=== PATIENT | female | born 1990 | race Caucasian/White ===

== ENCOUNTER 2016-07-24 03:24 | Emergency (ER) | payer OTHER ==
[2016-07-24 03:30] VITALS: BP 109/78; PULSE 71; RESP 16; TEMP 97.5; O2SAT 98
[2016-07-24] MEDS ORDERED: TDAP ADULT 0.5 ML INJ (BOOSTRIX) IM ONE (03:45)
[2016-07-24] MEDS ORDERED: SKIN ADHESIVE (DERMABOND) 1 EACH TP ONE (03:45)
--- NOTE | 2016-07-24 04:23 | EDPHY ---
H & P Stated Complaint: L hand lac Time Seen by Provider: 07/24/16 03:44 HPI/ROS: HPI The patient presents with left wrist laceration which occurred just prior to arrival. She was in her bed and went to tape a window which was rattling. Her hand went directly through the window and she cut herself on a piece of glass. She denies any numbness or tingling. She is able to move her wrist she says. She believes her tetanus shot is up-to-date. REVIEW OF SYSTEMS Constitutional: No fever, no chills. Skin: No rashes. Neurological: No headache. PMHx: Healthy Soc Hx: College student, recently relocated to [place] after living in [place] PHYSICAL General Appearance: Alert, no distress Eyes: Pupils equal and round no pallor or injection ENT, Mouth: Mucous membranes moist Respiratory: Breathing comfortably Neurological: A&O, moves all extremities Skin: Warm and dry, no rashes Musculoskeletal: Neck is supple non tender Extremities: Left wrist with 4 cm laceration overlying radial aspect of anterior wrist, no tendon involvement seen, full range of motion of wrist, sensation intact to light touch of hand Psychiatric: Patient is oriented X 3, there is no agitation Source: Patient - Personal History LMP (Females 10-55): Now Current Tetanus/Diphtheria Vaccine: Unsure Current Tetanus Diphtheria and Acellular Pertussis (TDAP): Unsure - Medical/Surgical History Hx Asthma: No Hx Chronic Respiratory Disease: No Hx Diabetes: No Hx Cardiac Disease: No Hx Renal Disease: No Hx Cirrhosis: No Hx Alcoholism: No Hx HIV/AIDS: No Hx Splenectomy or Spleen Trauma: No Other PMH: jaw/joint replacement x2 5 and 2 years ago - Social History Smoking Status: Never smoked Constitutional: Initial Vital Signs Temperature (C) 36.4 C 07/24/16 03:28 Heart Rate 71 07/24/16 03:28 Respiratory Rate 16 07/24/16 03:28 Blood Pressure 109/78 07/24/16 03:28 O2 Sat (%) 98 07/24/16 03:28 O2 Delivery Mode Room Air Allergies/Adverse Reactions: No Known Allergies Allergy (Unverified 05/28/14 16:58) Medical Decision Making - Diagnostics Imaging: X-ray left wrist two view shows no fracture, no dislocation, no foreign body, interpreted by me, radiology interpretation is pending. Procedures: LACERATION REPAIR Procedure: Laceration repair. Verbal consent was obtained from the patient. The linear 4 cm laceration on the left wrist was anesthetized using lidocaine with epinephrine. The wound was scrubbed, draped and explored to its base with a gloved finger. There were no deep structures involved. No tendon injury was identified. . The wound was repaired with 4.0 Prolene. The wound repair was simple/complex. The procedure was performed by myself. Differential Diagnosis: This is a healthy 25-year-old woman who presents after sustaining a laceration to her left wrist, cutting it on a piece of glass from a broken window. Differential diagnosis includes retained foreign body, tendon injury, simple laceration. In the emergency room, the wound was anesthetized, irrigated. X-rays were performed which revealed no foreign body. The wound was repaired with sutures. No deep structure involvement was found. - Data Points Medications Given: Discontinued Medications Diphtheria/Tetanus/Acell Pertussis (Boostrix) 0.5 ml IM .ONCE ONE Stop: 07/24/16 03:46 Last Admin: 07/24/16 04:04 Dose: 0.5 ml Octyl Cyanoacrylate (Dermabond) 1 each TP EDNOW ONE Stop: 07/24/16 03:46 Last Admin: 07/24/16 04:05 Dose: 1 each Departure - Departure Disposition: Home, Routine, Self-Care Clinical Impression: Laceration Condition: Good Instructions: Care For Your Stitches (ED) Additional Instructions: Please return to the emergency room in 7 days to have your stitches taken out. You should return if there is any redness, swelling, drainage from the wound. I have given you the information for the hand specialist if you have ongoing pain. Referrals: Gunjan Singh MD [Medical Doctor] - As per Instructions Stand Alone Forms: School Excuse
== END 2016-07-24 04:35 | disposition home or self-care (01) ==
PROC: 0HQEXZZ Repair Left Lower Arm Skin, External Approach (ICD-10-PCS; principal; 2016-07-24)
DX: S61.512A Laceration without foreign body of left wrist, initial encounter (principal); Z23 Encounter for immunization; W25.XXXA Contact with sharp glass, initial encounter; Y93.89 Activity, other specified
CPT/HCPCS: L3908

== ENCOUNTER 2016-09-09 18:44 | Observation (INO) | payer OTHER ==
[2016-09-09] MEDS ORDERED: MAG HYDROX/AL HYDROX/SIMETH 30 ML UDCUP PO ONE (19:14)
[2016-09-09] MEDS ORDERED: HYOSCYAMINE SULFATE 0.125 MG TAB PO ONE (19:14)
[2016-09-09] MEDS ORDERED: LIDOCAINE 2% VISCOUS 15 ML UDCUP PO ONE (19:14)
--- NOTE | 2016-09-09 19:17 | EDPHY ---
H & P Stated Complaint: 3 days feeling like something is stuck in throat/gags/vomits Time Seen by Provider: 09/09/16 18:56 HPI/ROS: CHIEF COMPLAINT: Dysphagia HISTORY OF PRESENT ILLNESS: The patient presents to the ED with a 3 day history of dysphagia and nausea and intermittent gagging. The patient denies any inability to keep solid or liquid food down. The patient has had a burning substernal discomfort in her esophagus over the past several days. It is worse with positional changes. It is also worsened with any eating. The patient denies significant past medical history such as diabetes or immunosuppression. Patient does have a history of intestinal issues. She reports she underwent endoscopy in 2011 and was on a proton pump inhibitor for a period of time. The patient denies melena or hematemesis. REVIEW OF SYSTEMS: A comprehensive 10 point review of systems is otherwise negative aside from elements mentioned in the history of present illness. Source: Patient Exam Limitations: No limitations - Personal History LMP (Females 10-55): 15-21 Days Ago Current Tetanus/Diphtheria Vaccine: Yes - Medical/Surgical History Hx Asthma: No Hx Chronic Respiratory Disease: No Hx Diabetes: No Hx Cardiac Disease: No Hx Renal Disease: No Hx Cirrhosis: No Hx Alcoholism: No Hx HIV/AIDS: No Hx Splenectomy or Spleen Trauma: No Other PMH: jaw/joint replacement x2 5 and 2 years ago - Social History Smoking Status: Never smoked - Physical Exam Exam: General Appearance: Alert, slightly anxious, tearful Eyes: Pupils equal and round no pallor or injection ENT, Mouth: Mucous membranes moist Respiratory: There are no retractions, lungs are clear to auscultation Cardiovascular: Regular rate and rhythm Gastrointestinal: Abdomen is soft and nontender, no masses, bowel sounds normal Neurological: A&O, normal motor function, normal sensory exam, normal cranial nerves Skin: Warm and dry, no rashes Musculoskeletal: Neck is supple nontender Extremities: symmetrical, full range of motion Constitutional: Initial Vital Signs Temperature (C) 36.8 C 09/09/16 18:53 Heart Rate 86 09/09/16 18:53 Respiratory Rate 20 09/09/16 18:53 Blood Pressure 127/88 H 09/09/16 18:53 O2 Sat (%) 94 09/09/16 18:53 O2 Delivery Mode Room Air Allergies/Adverse Reactions: No Known Allergies Allergy (Verified 09/09/16 18:52) Home Medications: Medication Instructions Recorded Melatonin [Melatonin 3 MG (*)] 3 mg PO HS PRN 09/09/16 Multivitamins [Multivitamin (*)] 1 tab PO HS 09/09/16 Norgestimate-Ethinyl Estradiol 1 tab PO HS 09/09/16 [Sprintec] Sertraline HCl [Zoloft 25mg (*)] 25 mg PO DAILY 09/09/16 Medical Decision Making - Diagnostics Imaging: Imaging Impressions Chest X-Ray 09/09/16 20:40 Impression: Clear lungs. No acute process. Chest x-ray AP: Images reviewed by myself, negative for acute disease. ED Course/Re-evaluation: Additional ED database: CBC within normal limits, Chem 7 within normal limits, test negative Emergency department course The patient presents to the ED with esophageal irritation. The patient has no clinical evidence of a significant impaction. The patient has had upper endoscopy approximately 5 years ago for similar symptoms. The patient was given a GI cocktail which she was unable to tolerate. The patient was given carbonated soda which she was able to slowly drink without regurgitation. Patient continues to have significant dysphagia. At this point time there is not an obvious occlusive impaction or foreign body however she is certainly quite symptomatic. The patient does not feel as if she can safely be discharged home. She is not able to eat or drink over the past 2-3 days. Consultation is made with the patient's regular gastroenterology service. The patient will be admitted to the hospital this evening in anticipation of likely EGD tomorrow. I spoke with Dr. Becki echeverria from Gastroenterology who will evaluate the patient tomorrow. I spoke with Dr. Guillaume Ruiz from the hospitalist service who will admit the patient this evening. Differential Diagnosis: Differential diagnosis considered includes pharyngitis, esophagitis, esophageal impaction - Data Points Medications Given: Discontinued Medications Al Hydroxide/Mg Hydroxide (Maalox Susp) 30 ml PO ONCE ONE Stop: 09/09/16 19:15 Last Admin: 09/09/16 19:20 Dose: 30 ml Hyoscyamine Sulfate (Levsin, Hyomax-Sl) 0.25 mg PO ONCE ONE Stop: 09/09/16 19:15 Last Admin: 09/09/16 19:20 Dose: 0.25 mg Sodium Chloride (Ns) 1,000 mls @ 0 mls/hr IV ONCE ONE PRN Reason: Wide Open Stop: 09/09/16 20:41 Last Admin: 09/09/16 20:56 Dose: 1,000 mls Lidocaine (Lidocaine 2% Viscous) 15 ml PO ONCE ONE Stop: 09/09/16 19:15 Last Admin: 09/09/16 19:20 Dose: 15 ml Lorazepam (Ativan) 0.5 mg PO EDNOW ONE Stop: 09/09/16 21:31 Last Admin: 09/09/16 21:31 Dose: 0.5 mg Morphine Sulfate (Morphine) 2 mg IVP EDNOW ONE Stop: 09/09/16 21:31 Last Admin: 09/09/16 21:31 Dose: 2 mg Departure - Departure Disposition: [facility] Inpatient Acute Clinical Impression: Dysphagia Condition: Good
[2016-09-09] MEDS ORDERED: NS 1,000 ML IV ONE (20:40)
[2016-09-09] MEDS ORDERED: ACETAMINOPHEN 325 MG TAB PO PRN (21:09)
[2016-09-09] MEDS ORDERED: ONDANSETRON DISINTEGRATING 4 MG TAB PO PRN (21:09)
[2016-09-09 21:10] LABS: % IMMATURE GRANULYOCYTES 0.4 % (0.0-1.1); ABSOLUTE IMMATURE GRANULOCYTES 0.04 10^3/uL (0.00-0.10); ADD DIFF? NO; ADD MORPH? NO; ADD SCAN? NO; ATYPICAL LYMPHOCYTE FLAG 10 (0-99); FRAGMENT RBC FLAG 0 (0-99); HEMATOCRIT 43.4 % (38.0-47.0); HEMOGLOBIN 14.7 g/dL (12.6-16.3); LEFT SHIFT FLG 0 (0-99); LIPEMIA HEMOLYSIS FLAG 90 (0-99); MEAN CELL HEMOGLOBIN 30.4 pg (27.9-34.1); MEAN CELL HEMOGLOBIN CONCENTR. 33.9 g/dL (32.4-36.7); MEAN CELL VOLUME 89.9 fL (81.5-99.8); MEAN PLATELET VOLUME 9.2 fL (8.7-11.7); PLATELET CLUMPS FLAG 0 (0-99); PLATELET COUNT 337 10^3/uL (150-400); RED BLOOD CELL COUNT 4.83 10^6/uL (4.18-5.33); RED CELL DISTRIBUTION WIDTH 13.7 % (11.5-15.2)
[2016-09-09] MEDS ORDERED: NS 1,000 ML IV SCH (21:15)
[2016-09-09 21:22] LABS: ANION GAP 11 mEq/L (8-16); CALCIUM 10.2 mg/dL (8.5-10.4); CARBON DIOXIDE 29 mEq/l (22-31); CHLORIDE 102 mEq/L (97-110); CREATININE 0.8 mg/dL (0.6-1.0); GLOMERULAR FILTRATION RATE > 60; GLUCOSE 92 mg/dL (70-100); POTASSIUM 4.2 mEq/L (3.5-5.2); SODIUM 142 mEq/L (134-144)
[2016-09-09] MEDS ORDERED: LORazepam 2 MG/ML INJ ONE (21:26)
[2016-09-09] MEDS ORDERED: LORazepam 1 MG TAB PO ONE (21:30)
[2016-09-09] MEDS ORDERED: MELATONIN 3 MG TAB PO PRN (21:47)
[2016-09-09] MEDS: PANTOPRAZOLE SODIUM 40 MG in NS 100 ML IV SCH (21:57)
[2016-09-09] MEDS: oxyCODONE IR 5 MG TAB PO PRN (21:57)
[2016-09-09] MEDS ORDERED: NORGESTIMATE ETHINYL ESTRADIOL PO SCH (22:00)
--- NOTE | 2016-09-09 22:19 | GHP ---
[f rep st] HISTORY AND PHYSICAL DATE OF ADMISSION: 09/09/2016 CHIEF COMPLAINT: Odynophagia. HISTORY OF PRESENT ILLNESS: A 25-year-old female with a history of previous intestinal issues, whic h were described to her as excess stomach acid production, who presents with pain while swallowing. This started somewhat acutely 3 days ago. It did not occur while she was eating. She drank some s michael, and thought that maybe the acidity in the soda caused this. Since then, she has had severe kurt n. She points to her neck when she describes the location with eating and drinking. She has really not been able to keep anything down for the entire 3 days. This got worse, thus she presented to [facility] emergency department today. She did have an upper endoscopy by Dr. Grayson, she reports in 2011. S he was told then that everything was normal. I do not have the operative note, though I do see a du odenal biopsy, which was normal. She was prescribed to be on a proton-pump inhibitor, though she conrad s not been taking this for few years, she says. PAST MEDICAL/SURGICAL HISTORY: 1. Depression. 2. Two jaw surgeries. MEDICATIONS: Please see medication reconciliation. ALLERGIES: None. FAMILY HISTORY: No significant family history. SOCIAL HISTORY: She goes to school. She is studying Ukrainian and Ethiopian. She rarely drinks. She d oes not smoke. REVIEW OF SYSTEMS: Ten-point review of system is conducted, and is negative, except per HPI. She is quite tearful as I am interviewing her. She says she feels overwhelmed by all of this. She is very concerned, and wished she did not have to be admitted to the hospital. PHYSICAL EXAM: VITAL SIGNS: Blood pressure 144/108, heart rate is 98, respiratory rate 20, saturat ing at 97% on room air, temperature is 36.7. GENERAL: The patient is a pleasant 25-year-old female who is quite tearful, and wiping her nose. HEENT: Shows mucous membranes moist. I do not appreci ate any thrush. CARDIOVASCULAR: Exam shows a regular rate and rhythm. No murmurs, rubs, or gallop s. PULMONARY: Lungs clear to auscultation bilaterally. ABDOMEN: Soft, nontender, nondistended. SKIN: Shows no rash. : Shows no Ruiz. NEUROLOGIC: Exam shows her to be alert and oriented x3 . She is moving all extremities. PSYCHIATRIC: Exam shows her to be tearful. LABS: Basic metabolic panel is normal. Beta hCG is pending. White count is 10.8, 82% neutrophils. DATA: 1. I discussed this with Dr. Monte. 2. I personally reviewed and interpreted her chest x-ray. This shows clear lungs with nothing acut e. 3. I reviewed her old biopsy results. IMPRESSION AND PLAN: 1. This is a 25-year-old female with odynophagia. Etiologies include possible stricture versus oth er esophagitis. Dr. Mitchell has been consulted. He will plan to do an upper endoscopy tomorrow. Marcelle celeste did not tolerate a GI cocktail, as ordered by the ED. Until then, we will control her pain with m orphine and started IV PPI. 2. Feeling of being overwhelmed and tearfulness: She tells me there is nothing else going on that is causing this. I have given her some Ativan for anxiety. I also gave her reassurance. 3. We will make her n.p.o. pending the EGD. 4. We will give her IV hydration. /[id number]/MODL
[2016-09-09] MEDS: LORazepam 2 MG/ML INJ IVP PRN (22:27)
[2016-09-09] MEDS ORDERED: CEPACOL LOZENGE PO PRN (23:15)
[2016-09-10] MEDS ORDERED: PROMETHAZINE HCL 25 MG TAB PO PRN ×2 (00:30→00:49)
[2016-09-10] MEDS: LORazepam 2 MG/ML INJ IVP PRN ×2 (01:18→05:23)
[2016-09-10] MEDS: ONDANSETRON 4 MG/2 ML VIAL IVP PRN ×2 (03:35→08:16)
[2016-09-10] MEDS: oxyCODONE IR 5 MG TAB PO PRN (03:35)
[2016-09-10] MEDS ORDERED: LORazepam 2 MG/ML INJ ONE (05:21)
[2016-09-10 05:51] LABS: % IMMATURE GRANULYOCYTES 0.1 % (0.0-1.1); ABSOLUTE IMMATURE GRANULOCYTES 0.01 10^3/uL (0.00-0.10); ADD DIFF? NO; ADD MORPH? NO; ADD SCAN? NO; ATYPICAL LYMPHOCYTE FLAG 20 (0-99); FRAGMENT RBC FLAG 0 (0-99); HEMATOCRIT 35.7 % (38.0-47.0); HEMOGLOBIN 12.1 g/dL (12.6-16.3); LEFT SHIFT FLG 0 (0-99); LIPEMIA HEMOLYSIS FLAG 90 (0-99); MEAN CELL HEMOGLOBIN 30.8 pg (27.9-34.1); MEAN CELL HEMOGLOBIN CONCENTR. 33.9 g/dL (32.4-36.7); MEAN CELL VOLUME 90.8 fL (81.5-99.8); MEAN PLATELET VOLUME 9.3 fL (8.7-11.7); PLATELET CLUMPS FLAG 0 (0-99); PLATELET COUNT 237 10^3/uL (150-400); RED BLOOD CELL COUNT 3.93 10^6/uL (4.18-5.33); RED CELL DISTRIBUTION WIDTH 13.6 % (11.5-15.2)
[2016-09-10 06:46] LABS: ALANINE AMINOTRANSFERASE 28 IU/L (9-52); ALBUMIN 3.6 g/dL (3.5-5.0); ALKALINE PHOSPHATASE 50 IU/L (38-126); ANION GAP 4 mEq/L (8-16); ASPARTATE AMINOTRANSFERASE 22 IU/L (14-46); CALCIUM 8.8 mg/dL (8.5-10.4); CARBON DIOXIDE 24 mEq/l (22-31); CHLORIDE 108 mEq/L (97-110); CREATININE 0.7 mg/dL (0.6-1.0); GLOMERULAR FILTRATION RATE > 60; GLUCOSE 89 mg/dL (70-100); POTASSIUM 4.1 mEq/L (3.5-5.2); SODIUM 136 mEq/L (134-144); TOTAL PROTEIN 6.3 g/dL (6.3-8.2)
[2016-09-10] MEDS: PANTOPRAZOLE SODIUM 40 MG in NS 100 ML IV SCH (08:06)
[2016-09-10] MEDS ORDERED: SERTRALINE HCL 25 MG TAB PO SCH (09:00)
[2016-09-10] MEDS ORDERED: PROPOFOL/EMULSION 500 MG/50 ML BOTTLE IV ONE (13:49)
[2016-09-10] MEDS ORDERED: LIDOCAINE 2% 5 ML SDV ONE (13:49)
--- NOTE | 2016-09-10 14:10 | SUROPNOTE ---
[facility] Operative Report - Surgery BRIEF EGD NOTE INDICATION: odynophagia MEDS: per anesthesia COMPLICATIONS: none acutely FINDINGS: 1. Esophagus - diffuse mild esophagitis - bx'd 2. Stomach - mild gastritis - bx'd 3. Duodenum - nl IMPRESSION/RECS: 1. Odynophagia - likely from mild esophagitis - maybe pill induced? - maybe peptic/GERD? - ok to advance diet - recommend PPI PO BID x 4 weeks, then QD x 4-8 weeks - await bx results - ok to use viscous lidocaine swish and swallow with meals PRN - no GI f/u needed, unless recurrence occurs or bx result mandate additional evaluation - will sign off, call with questions
[2016-09-10] MEDS ORDERED: LIDOCAINE 2% VISCOUS 15 ML UDCUP PO PRN (15:20)
[2016-09-10 15:37] VITALS: BP 126/97; PULSE 65; RESP 16; TEMP 97.5; O2SAT 94
--- NOTE | 2016-09-10 16:41 | GCON ---
[f rep st] CONSULTATION REFERRING PHYSICIAN: Guillaume Ruiz MD CHIEF COMPLAINT: Difficulty swallowing. HISTORY OF PRESENT ILLNESS: Briefly, the patient is a pleasant, healthy, 25-year-old female, who wa s admitted to the hospital on September 09, 2016, for the evaluation of odynophagia and dysphagia. I was asked by Dr. Ruiz to evaluate her for these symptoms. She reports she has only recently been troubled with these symptoms. These symptoms began approxima tely 48-72 hours ago. Of note, she has been suffering from an upper respiratory tract infection, conrad s been taking nighttime cold medicines. Her only other medicines are control and Zoloft. She has not been using any antibiotic therapies. She reports no longstanding history of intermittent h eartburn, indigestion, etc. Several years ago she underwent an evaluation for abdominal pain. She underwent upper endoscopy, which was largely normal. She was treated empirically with a course of p roton pump inhibitor and improved. She reports no fevers, chills, or sweats. She has had no nausea or vomiting. She reports no change s in her weight, appetite, or energy level. Overnight in the hospital she received some proton pump inhibitor as well as pain therapies, in addition to some oral GI therapy such as GI cocktail. She reports that this morning she is feeling somewhat better, although still reports some difficulty wit h swallowing. ALLERGIES: None. OUTPATIENT MEDICINES: control and Zoloft. SOCIAL HISTORY: She drinks alcohol rarely. She does not smoke. She is a student. FAMILY HISTORY: She reports it is negative for any upper intestinal malignancy. REVIEW OF SYSTEMS: 14-point review of systems was undertaken with the patient and is negative excep t for those details described in the history of present illness. PHYSICAL EXAMINATION: GENERAL: This is a well-developed female, in no apparent distress. HEENT: Her pupils are equal, round, reactive to light and accommodation. Her sclerae are nonicteric. Orop harynx is clear. NECK: Supple without lymphadenopathy. HEART: Regular without murmur. ABDOMEN: Soft, nontender, with normoactive bowel sounds. EXTREMITIES: Free of cyanosis, clubbing, edema. NEURO: Grossly nonfocal. SKIN: Warm and dry. PSYCH: Reveals normal mood and affect. LABORATORY TESTING: White count of 10.8, hemoglobin of 14.7, hematocrit 43.4, platelet count of 337 . Basic metabolic panel was normal. test was normal. Liver function tests were normal. IMPRESSION AND RECOMMENDATIONS: Odynophagia. I suspect that the patient has pill-induced esophagit is from her nighttime cold medicines. The differential might also include infection, ulceration, st ricture, ulcer, malignancy, etc. In order to resolve this differential diagnosis, I recommend she u ndergo upper endoscopy. She should remain on a proton pump inhibitor, remain n.p.o., and we will pl an a procedure to occur, hopefully today. Pending the results of her endoscopic evaluation, she may be able to be discharged home. /[id number]/MODL
[2016-09-10] MEDS ORDERED: NORGESTIMATE ETHINYL ESTRADIOL PO SCH (21:00)
--- NOTE | 2016-09-10 21:25 | GDS ---
[f rep st] DISCHARGE SUMMARY DISCHARGE DIAGNOSES: 1. Esophagitis possibly pill related. 2. Depression. HISTORY OF PRESENT ILLNESS: A 25-year-old female with a history of previous reflux symptoms who presents with complaints of odynophagia. For details of the patient's initial presentation, please see the history and physical dated . CONSULTATIVE SERVICES: Include Gastroenterology. PROCEDURES: On 09/10/2016 the patient had an EGD that showed esophagitis thought potentially to be pill induced. Biopsies were taken. HOSPITAL COURSE: 1. Odynophagia. Patient did have some improvement in her symptoms overnight. She was kept n.p.o., provided with IV PPI, and fluid resuscitation. Patient will be discharged on a p.o. b.i.d. PPI for 1 month, then daily for 2 months additionally providing viscous lidocaine before meals to assist in the acute setting. Patient will follow with outpatient Gastroenterology for biopsy results. 2. Depression. Will continue her home medications without change. FOLLOW UP APPOINTMENTS: Include: 1. With Gastroenterology in 2-4 weeks for biopsy results and post disposition followup. 2. With her primary care provider for long-term management of her depression. PENDING STUDIES: At the time of this dictation include biopsy results from the EGD, which will be followed by outpatient Dr. Mitchell. I spent greater than 30 minutes in the planning and coordination of this discharge. /[id number]/MODL MTDD
--- NOTE | 2016-09-10 21:51 | GPN ---
[f rep st] PROCEDURE NOTE PROCEDURE: Upper endoscopy. INDICATION: Odynophagia. MEDICATIONS USED: Anesthesia was administered by our anesthesia colleagues. This was deemed necess naida due to the patient's high likelihood to have a difficult time with conscious sedation. COMPLICATIONS: Acutely none. DESCRIPTION OF PROCEDURE: After informed consent was obtained, the patient was placed in the left l ateral decubitus position. The forward viewing upper endoscope was advanced through the mouth into the proximal duodenum. Retroflex views in the gastric cardia were obtained. FINDINGS: 1. Diffuse esophagitis was noted, particularly in the lower third. Biopsies were obtained. 2. [id number] gastritis discovered in the antrum. Biopsies were obtained. 3. Normal duodenum. IMPRESSION AND RECOMMENDATIONS: I suspect the patient's symptoms of odynophagia are related to mild esophagitis. The etiology of the esophagitis is uncertain. Given her recent history of increased use of nighttime medications, I suspect pill-induced esophagitis. The differential diagnosis could include eosinophilic changes, peptic disease, etc. Biopsies should help resolve this differential. Meanwhile, the patient should be able to resume p.o. intake. I recommend she take a proton-pump inh ibitor twice daily for at least 1 month, and perhaps daily after that. My office will call her with the results of her biopsies. Hopefully, she will tolerate food today, and be able to be discharged home. /[id number]/MODL
== END 2016-09-10 16:29 | disposition home or self-care (01) ==
LOC: F1N 21:27
PROVIDERS: ADMIT Student in an Organized Health Care Education/Training Program; ATTEND Hospitalist
PROC: 0DB38ZX Excision of Lower Esophagus, Via Natural or Artificial Opening Endoscopic, Diagnostic (ICD-10-PCS; principal; 2016-09-09)
PROC: 0DB68ZX Excision of Stomach, Via Natural or Artificial Opening Endoscopic, Diagnostic (ICD-10-PCS; principal; 2016-09-09)
DX: R13.10 Dysphagia, unspecified (principal); K20.9 Esophagitis, unspecified; K29.70 Gastritis, unspecified, without bleeding
CPT/HCPCS: 43239; 71010; G0378; J2060; J2405; J2704

== ENCOUNTER 2017-12-25 17:55 | Emergency (ER) | payer MEDICAID, OTHER ==
--- NOTE | 2017-12-25 18:53 | EDPHY ---
H & P Stated Complaint: L knee injury Time Seen by Provider: 12/25/17 18:13 HPI/ROS: CHIEF COMPLAINT: Left patellar dislocation HISTORY OF PRESENT ILLNESS: 27-year-old female presents with left patellar dislocation. She has a history of recurrent right patellar dislocations, but has never dislocated her left patella. She was doing at [place] yesterday evening when her left patella suddenly dislocated. Immediate onset of severe pain. She was able to reduce the patella without problem. However, she has had moderate to severe pain since the injury and was unable to sleep last night because of pain. Unable to take NSAIDs (upset stomach). ROS: No numbness, weakness, excessive bleeding, syncopal episode, other injury. - Personal History LMP (Females 10-55): 15-21 Days Ago Current Tetanus/Diphtheria Vaccine: Yes Current Tetanus Diphtheria and Acellular Pertussis (TDAP): Yes - Medical/Surgical History PMH: Recurrent patellar dislocations Hx Asthma: No Hx Chronic Respiratory Disease: No Hx Diabetes: No Hx Cardiac Disease: No Hx Renal Disease: No Hx Cirrhosis: No Hx Alcoholism: Yes Hx HIV/AIDS: No Hx Splenectomy or Spleen Trauma: No Other PMH: jaw/joint replacement x2 5 and 2 years ago - Social History Smoking Status: Never smoked - Physical Exam Exam: Alert, pleasant, appears in pain Extremities: Left knee-moderate effusion, diffuse tenderness, pain with range of motion; no calf swelling or tenderness Skin: Intact Neuro: Motor and sensory intact Vascular: Capillary refill brisk distally Constitutional: Initial Vital Signs Temperature (C) 36.6 C 12/25/17 18:01 Heart Rate 104 H 12/25/17 18:01 Respiratory Rate 16 12/25/17 18:01 Blood Pressure 119/82 H 12/25/17 18:01 O2 Sat (%) 95 12/25/17 18:01 O2 Delivery Mode Room Air Allergies/Adverse Reactions: No Known Allergies Allergy (Verified 12/25/17 17:59) Home Medications: Medication Instructions Recorded Multivitamins [Multivitamin (*)] 1 tab PO HS 09/09/16 Norgestimate-Ethinyl Estradiol 1 tab PO HS 09/09/16 [Sprintec 28 Day Tablet] DULoxetine 12/25/17 Hydrocodone/APAP 5/325 [[place] 1 - 2 tab PO Q4H PRN #10 tab 12/25/17 5/325] Medical Decision Making - Diagnostics Imaging Results: Imaging Impressions Knee X-Ray 12/25/17 18:04 Impression: The dislocation has been reduced and there is a small avulsion fracture on the lateral aspect with a joint effusion noted. Soft tissue swelling about the knee is also identified. ED Course/Re-evaluation: Knee immobilizer given and crutches dispensed. [place] 1 tablet orally given for pain control. Follow up with Ortho. - Data Points Medications Given: Discontinued Medications Hydrocodone Bitart/Acetaminophen ([place] 5/325) 1 tab PO EDNOW ONE Stop: 12/25/17 18:56 Last Admin: 12/25/17 19:03 Dose: 1 tab Departure - Departure Disposition: Home, Routine, Self-Care Clinical Impression: Closed dislocation of left patella Qualifiers: Encounter type: initial encounter Qualified Code(s): S83.005A - Unspecified dislocation of left patella, initial encounter Condition: Good Instructions: Patellar Dislocation (ED) Additional Instructions: You have a small avulsion fracture related to the patellar dislocation. 1. Wear the knee immobilizer while out of bed until pain free or seen by Orthopedics for follow-up. 2. Take Tylenol 650 mg every 4 hours as needed for pain. 3. Apply ice for 30 minutes at a time; 2-3 times per day for the next 1-2 days. 4. Follow up with Orthopedics in 2-3 days. Referrals: Connie Palomares PA [Primary Care Provider] - As per Instructions Prescriptions: Hydrocodone/APAP 5/325 [[place] 5/325] 1 - 2 tab PO Q4H PRN #10 tab PRN Reason: Pain, Moderate
[2017-12-25] MEDS ORDERED: HYDROCODONE/APAP 5/325 TAB PO ONE (18:55)
[2017-12-25 19:03] VITALS: BP 124/77
== END 2017-12-25 19:31 | disposition home or self-care (01) ==
PROC: 0QSFXZZ Reposition Left Patella, External Approach (ICD-10-PCS; principal; 2017-12-25)
DX: S83.005A Unspecified dislocation of left patella, initial encounter (principal); X50.9XXA Other and unspecified overexertion or strenuous movements or postures, initial encounter; Y99.8 Other external cause status; Y93.89 Activity, other specified
CPT/HCPCS: L1830